=== PATIENT | male | born 1995 | race Caucasian/White ===

== ENCOUNTER → 2018-07-08 | Outpatient (REF) | payer OTHER | LOC: M SFHCLERA 10:55 | PROVIDERS: ATTEND Physician Assistant | DX: R50.9 Fever, unspecified (principal) ==

== ENCOUNTER → 2019-01-10 | Outpatient (CLI) | payer OTHER ==
--- NOTE | 2019-01-10 13:12 | REP ---
PA and lateral chest: There are no comparisons. The lung shin are clear. The cardiac size is normal. The yuli, mediastinum, and skeletal structures are unremarkable. Impression: Negative PA and lateral chest. Electronically Signed by Fabio Monroe MD 01/10/2019 01:03 P
== END ==
LOC: M LRY 12:42
PROVIDERS: ATTEND Nurse Practitioner Family
DX: R05 Cough (principal)
CPT/HCPCS: 71046; 87880; G0463

== ENCOUNTER → 2019-01-10 | Outpatient (REF) | payer OTHER | LOC: M SFHCLERA 12:39 | PROVIDERS: ATTEND Nurse Practitioner Family | DX: J02.9 Acute pharyngitis, unspecified (principal) ==

== ENCOUNTER → 2019-06-15 | Outpatient (CLI) | payer OTHER ==
[~2019-06-15] MED LIST: CELE1CAP4 PO; IRON1TAB2 PO; PRED20TA PO; PROAAER10
--- NOTE | 2019-06-15 13:36 | REP ---
PA and lateral chest: Comparison is 01/10/2019. The lung shin are clear. The cardiac size is normal. The yuli, mediastinum, and skeletal structures are unremarkable. Impression: Negative PA and lateral chest. There is no interval change. Electronically Signed by Fabio Monroe MD 06/15/2019 01:27 P
== END ==
LOC: M LRY 13:06
PROVIDERS: ATTEND Physician Assistant
DX: R07.1 Chest pain on breathing (principal)
CPT/HCPCS: 71046; 93005; G0463

== ENCOUNTER 2019-06-18 14:29 | Emergency (ER) | payer OTHER ==
[~2019-06-18] VITALS: Ht 175.3 cm; Wt 90.4 kg
[2019-06-18] MEDS ORDERED: PROAAER10 (14:41)
[2019-06-18] MEDS ORDERED: CELE1CAP4 PO (14:41)
[2019-06-18] MEDS ORDERED: PRED20TA PO (14:41)
[2019-06-18 15:43] LABS: BASO % 0.4 % (0.0-1.0); EOS # 0.1 10^3/uL (0.0-0.5); HEMATOCRIT 38.9 % (42.0-52.0); HEMOGLOBIN 13.2 g/dl (13.5-17.5); LYMPH # 1.7 10^3/uL (1.5-5.0); LYMPH % 16.6 % (24.0-44.0); MEAN CORPUSCULAR HEMOGLOBIN 30.9 pg (27.0-33.0); MEAN CORPUSCULAR HGB CONC 33.9 g/dl (32.0-36.5); MEAN CORPUSCULAR VOLUME 91.1 fl (80.0-96.0); MONO # 0.8 10^3/uL (0.0-0.8); MONO % 8.1 % (0.0-5.0); NEUTROPHILS # 7.5 10^3/uL (1.5-8.5); NEUTROPHILS % 73.6 % (36.0-66.0); PLATELET COUNT, AUTOMATED 265 10^3/uL (150-450); RED BLOOD COUNT 4.27 10^6/uL (4.30-6.10); WHITE BLOOD COUNT 10.2 10^3/uL (4.0-10.0)
[2019-06-18 16:13] LABS: BLOOD UREA NITROGEN 17 MG/DL (7-18); CALCIUM LEVEL 8.9 MG/DL (8.5-10.1); CARBON DIOXIDE LEVEL 29 MEQ/L (21-32); CHLORIDE LEVEL 108 MEQ/L (98-107); CK-MB VALUE MASS < 1.0 NG/ML (<3.6); CPK CREATINE PHOSPHOKINASE 145 U/L (39-308); CREATININE FOR GFR 1.05 MG/DL (0.70-1.30); GLOMERULAR FILTRATION RATE > 60.0 (>60); GLUCOSE, FASTING 78 MG/DL (70-100); MB/CK RELATIVE INDEX 0.69 (< OR =4); POTASSIUM SERUM 4.1 MEQ/L (3.5-5.1); SODIUM LEVEL 142 MEQ/L (136-145); TROPONIN I < 0.02 NG/ML (< 0.10)
[2019-06-18] MEDS ORDERED: GI COCKTAIL 50ML BTL(HYOSCYAMINE/MAALOX/LIDOCAINE VISCOUS)(1:3:1) PO ONE (17:45)
[2019-06-18] MEDS ORDERED: KETOROLAC TROMETHAMINE 10 MG TAB PO ONE (17:45)
--- NOTE | 2019-06-18 18:43 | REP ---
Chest x-ray: Two views. History: Chest pain shortness of breath . Comparison study: June 15, 2019 . Findings: The lungs are well inflated and free of infiltrate. The pleural angles are sharp. The heart size is normal. Pulmonary vasculature is not increased. No significant bony abnormality is seen. Impression: Negative chest x-ray. Electronically Signed by Everardo Villagomez MD 06/18/2019 06:34 P
[2019-06-18 18:56] LABS: INFLUENZA A AMPLIFICATION NEGATIVE (NEGATIVE); INFLUENZA B AMPLIFICATION NEGATIVE (NEGATIVE)
[2019-06-18] MEDS ORDERED: IRON1TAB2 PO (19:44)
[2019-06-18 19:57] VITALS: BP 146/92
--- NOTE | 2019-06-19 15:00 | ECGEPIP ---
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
== END 2019-06-18 19:58 | disposition home or self-care (01) ==
LOC: M ED 14:29
DX: R07.89 Other chest pain (principal); D64.9 Anemia, unspecified; Z79.899 Other long term (current) drug therapy

== ENCOUNTER → 2019-11-05 | Outpatient (CLI) | payer OTHER ==
[~2019-11-05] MED LIST changes: +METHACHOLINE KIT (J7674) INH ONE
--- NOTE | 2019-11-05 09:30 | PFTRPT ---
Height: 69.00 Inches Weight: 212.00 Lbs BSA: 2.12 Diagnosis: R06.02 DATE OF PROCEDURE: 11/05/2019 ORDERED BY: Luz Maria Pringle INTERPRETATION: Study of excellent technical quality. Under protocol, methacholine was administered. At a dose of 2.5 mg or 13.875 CDUs, a 37% decline in the FEV1 was noted. PC of 0.57 is significant. Flow rates did return to baseline post bronchodilator administration. IMPRESSION: Positive methacholine challenge study. MTDD
== END ==
LOC: M CARPUL 08:36
PROVIDERS: ATTEND Nurse Practitioner Adult Health
DX: R06.02 Shortness of breath (principal)
CPT/HCPCS: 94070; J7674

== ENCOUNTER → 2020-02-12 | Outpatient (REF) | payer OTHER ==
[~2020-02-12] MED LIST changes: -METHACHOLINE KIT (J7674) INH ONE
[2020-02-12 17:55] LABS: BASO % 0.3 % (0.0-1.0); EOS # 0.1 10^3/uL (0.0-0.5); EOS % 0.9 % (0.0-3.0); HEMATOCRIT 45.9 % (42.0-52.0); HEMOGLOBIN 15.8 g/dl (13.5-17.5); LYMPH % 23.1 % (24.0-44.0); MEAN CORPUSCULAR HEMOGLOBIN 30.4 pg (27.0-33.0); MEAN CORPUSCULAR HGB CONC 34.4 g/dl (32.0-36.5); MEAN CORPUSCULAR VOLUME 88.4 fl (80.0-96.0); MONO # 0.7 10^3/uL (0.0-0.8); NEUTROPHILS % 67.5 % (36.0-66.0); PLATELET COUNT, AUTOMATED 301 10^3/uL (150-450); RED BLOOD COUNT 5.19 10^6/uL (4.30-6.10); WHITE BLOOD COUNT 8.9 10^3/uL (4.0-10.0)
[2020-02-16 18:12] LABS: D001-IgE D pteronyssinus <0.10 kU/L (Class 0); E001-IgE Cat Epith/Dander < 0.10 kU/L (Class 0); E005-IgE Dog Dander < 0.10 kU/L (Class 0); G002-IgE Bermuda Grass < 0.10 kU/L (Class 0); G008-IgE Kentucky Bluegrass < 0.10 kU/L (Class 0); M001-IgE Penicillium chrysogen < 0.10 kU/L (Class 0); M002 IgE Cladosporium herbaru < 0.10 kU/L (Class 0); M003 IgE Aspergillus fumigatu < 0.10 kU/L (Class 0); M006-IgE Alternaria alternata 4.01 kU/L (Class IV); T001-IgE Maple/Box Elder < 0.10 kU/L (Class 0); T003-IgE Common Silver Birch < 0.10 kU/L (Class 0); T006-IgE Cedar, Mountain < 0.10 kU/L (Class 0); T007-IgE Oak, White < 0.10 kU/L (Class 0); T008-IgE Elm, American < 0.10 kU/L (Class 0); T015-IgE Ash, White < 0.10 kU/L (Class 0); T041-IgE Hickory, White < 0.10 kU/L (Class 0); T070-IgE White Mulberry < 0.10 kU/L (Class 0); W001-IgE Ragweed, Short < 0.10 kU/L (Class 0); W009-IgE Plantain, English < 0.10 kU/L (Class 0); W014-IgE Pigweed, Rough < 0.10 kU/L (Class 0); W018-IgE Sheep Sorrel < 0.10 kU/L (Class 0)
== END ==
LOC: M LAB REF 16:53
PROVIDERS: ATTEND Nurse Practitioner Adult Health
DX: J45.40 Moderate persistent asthma, uncomplicated (principal)